=== PATIENT | female | born 1990 | race African-American/Black ===

== ENCOUNTER 2017-02-23 12:08 | Emergency (ER) | payer MEDICAID ==
[2017-02-23] MEDS ORDERED: KETOROLAC 60 MG/2 ML VIAL IVP STA (12:46)
[2017-02-23] MEDS ORDERED: SODIUM CHLORIDE 0.9% 1,000 ML IV ONE (12:46)
[2017-02-23] MEDS ORDERED: METOCLOPRAMIDE 10 MG/2 ML VIAL IVP STA (12:47)
[2017-02-23] MEDS ORDERED: KETOROLAC 30 MG/ML VIAL ONE (12:54)
[2017-02-23] MEDS ORDERED: METOCLOPRAMIDE 10 MG/2 ML VIAL IVP ONE (12:54)
[2017-02-23] MEDS ORDERED: IOPAMIDOL-300 100 ML VIAL IVP ONE (14:19)
== END 2017-02-23 15:15 | disposition home or self-care (01) ==
DX: R51 Headache (principal)
CPT/HCPCS: 36415; 70470; 80053; 81003; 81025; 83690; 85025; 96361; 96374; 96375; 99284; Q9967

== ENCOUNTER 2017-07-12 19:05 | Outpatient (CLI) | payer MEDICAID ==
[2017-07-12 19:25] LABS: HGB - HEMOGLOBIN 12.5 g/dL (12.0-16.0); MEAN CORPUSCULAR HEMOGLOBIN 28.7 pg (27.0-31.0); MEAN PLATELET VOLUME 9.3 fL (7.9-10.8); RED BLOOD COUNT 4.36 10^6/uL (4.20-5.40); RED CELL DISTRIBUTION WIDTH 13.5 % (12.0-15.0); WHITE BLOOD COUNT 9.4 x10^3/uL (4.8-10.8)
[2017-07-12 20:15] LABS: ALBUMIN/GLOBULIN RATIO 1.7 (1.0-2.2); BILIRUBIN,TOTAL 0.3 mg/dL (0.2-1.0); CALCIUM 9.1 mg/dL (8.5-10.3); CREATININE 0.6 mg/dL (0.4-1.0); POTASSIUM 3.3 mmol/L (3.5-5.0); TOTAL PROTEIN 7.2 g/dL (6.7-8.2)
== END 2017-07-12 19:06 | disposition home or self-care (01) ==
LOC: LAB 19:05
PROVIDERS: ATTEND Obstetrics & Gynecology
DX: Z32.01 Encounter for pregnancy test, result positive (principal)
CPT/HCPCS: 36415; 80053; 84702

== ENCOUNTER 2017-08-05 15:08 | Outpatient (CLI) | payer MEDICAID | END 2017-08-05 15:09 | disposition home or self-care (01) | LOC: LAB 15:08 | PROVIDERS: ATTEND Obstetrics & Gynecology | DX: Z33.2 Encounter for elective termination of pregnancy (principal) | CPT/HCPCS: 36415; 84702 ==

== ENCOUNTER 2017-08-10 10:04 | Outpatient (CLI) | payer MEDICAID | END 2017-08-10 10:05 | disposition home or self-care (01) | LOC: LAB 10:04 | PROVIDERS: ATTEND Obstetrics & Gynecology | DX: O02.1 Missed abortion (principal) | CPT/HCPCS: 36415; 84702 ==

== ENCOUNTER 2017-08-13 10:34 | Day surgery (SDC) | payer MEDICAID ==
--- NOTE | 2017-08-13 11:20 | PREOP HISTORY & PHYSICAL ---
DATE OF ADMISSION/SURGERY: 08/13/2017. IDENTIFICATION: A 27-year-old G3, P2-0-0-2 with an 8-week 1-day intrauterine . HISTORY OF PRESENT ILLNESS: This is a patient of [facility] who presented today for followup of her desire for termination of . She received methotrexate 50 mg IM x1 on 017. She had poor followup, but eventually did repeat her quantitative beta hCGs. Her pre-methotrexat e hCG was 1972. Post-methotrexate on 08/05/2017 was 7860. The most recent one on 08/10/2017 was 15,94 6. She states that she has been having some scant vaginal bleeding, in which she would use a panty li ner daily. She denied any cramping. On examination, the patient had a single viable intrauterine measuring 8 weeks 1 day with a crown rump length of 1.71 cm. I could not check heart rate, as the patient was crying so much. There was definitely cardiac activity noted and Doppler flow showed venous and arterial movement. On speculum exam, the cervix was closed, thick and high with a small amount of dark red blood in the po sterior cul-de-sac. There was no tissue protruding from the cervical os. The patient understandably is quite upset and would like further termination of . I discusse d with the patient her options. She may continue with this , but know that given the methotr exate, there may be consequences. Since methotrexate is a folate reductase inhibitor, this could have impact resulting in neural tube defects such as encephalopathy, as well as spina bifida. Further opt ion is to proceed with termination of . Given the resources at [facility] currently, she could either have another round of methotrexate or dilatation and curettage. I discussed with the lisa leblanc the risks, benefits, alternatives, indications and expectations of a suction dilatation and cur ettage. I went over the specifics of dilatation and curettage with the patient. She understands that this will be under general anesthesia. Risks include, but are not limited to inadvertent uterine perf oration, infection and hemorrhage. After all of the patient's questions were answered to her satisfac tion, she verbalized her desire to proceed with surgery. Consent forms have been signed. The patient also states that her life is in chaos. 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 She stat es that she took a lot of time off in order to have her child and has not had a lot PTO build up. The patient is very tearful and is concerned about depression. She has been started on buprop ion, but feels that she is too numb on this medication and feels that this medication has caused her to have no appetite. The patient does admit to smoking a lot of marijuana in order to deal with her a nxiety and depression. The patient is willing to change to a different SSRI at this point in time. He r current pharmacy of choice is [facility] in [place], [place]. PAST MEDICAL HISTORY 1. 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 2. Anxiety, depression. PAST SURGICAL HISTORY: Cardiac surgery x3. ALLERGIES: NO KNOWN DRUG ALLERGIES. MEDICATIONS: Bupropion 150 mg SR 1 tab p.o. daily. SOCIAL HISTORY: She denies any tobacco use, but she does admit to smoking a lot of marijuana. Her mos t recent delivery was vaginal at the [facility] on 01/28/2017. Her son i s named Dennis who weighed 7 pounds 5 ounces. Her first resulted in a vaginal delivery at the [facility] on 08/20/2013 at 40 weeks 6 days. She delivered a female infant named Corbin. PAST GYNECOLOGIC HISTORY: HSV. She denies any abnormal Pap smears. FAMILY HISTORY: Noncontributory. REVIEW OF SYSTEMS: Negative unless otherwise. PAST GYNECOLOGICAL HISTORY: She denies any nausea, vomiting, fevers, chills, diarrhea, or constipatio n. OBJECTIVE VITAL SIGNS: Weight 125 pounds. Height is 62 inches. BMI is 23. Vital signs are stable. She is afebri le. GENERAL: The patient is a well-developed, well-nourished female in no apparent distress. dereck is alert and oriented x3. Though she is very tearful and anxious, she is appropriate. HEENT: Within normal limits. CARDIOVASCULAR: Rate is regular, no murmurs or rubs. PULMONARY: Lungs clear to auscultation bilaterally. ABDOMEN: Soft, nontender. No masses, rebound, rigidity, or guarding. ASSESSMENT 1. A 27-year-old G3, P2-0-0-2 with an 8-week 1-day intrauterine . 2. Failed methotrexate termination. 3. Desired dilatation and curettage. PLAN 1. We will proceed to dilatation and curettage today at noon. 2. Anticipate giving the patient 1 gram of Ancef preoperatively for postoperative endometritis prophy laxis. 3. Ativan in the ambulatory surgery area. 4. Postop medications have been sent for Motrin, acetaminophen, and a handwritten prescription for hy drocodone and APAP. JOB #: [id number] EXT JOB #:[id number]
[2017-08-13] MEDS ORDERED: LACTATED RINGERS 1,000 ML IV ONE ×2 (11:21→12:29)
[2017-08-13] MEDS ORDERED: ceFAZolin 1 GM VIAL ONE (11:34)
[2017-08-13] MEDS ORDERED: MIDAZOLAM 2 MG/2 ML VIAL ONE (11:48)
[2017-08-13] MEDS ORDERED: miSOPROStol 200 MCG TABLET PR ONE (12:20)
[2017-08-13] MEDS ORDERED: OXYTOCIN 10 UNIT/ML VIAL ONE (12:24)
--- NOTE | 2017-08-13 12:39 | OPERATIVE REPORT ---
Operative Report - Other Other Information/Narrative: Date of Operation: 08/13/2017 Surgeon: Emily Mosley DO FACOG Entry Level Account Manager: None Anesthesiologist: Vitaly Donald MD Anesthesia: GET Pre-op Dx: 1. 27 yo with a 8w1d IUP 2. Failed termination of with MTX 3. Desired termination of Post-op Dx: 1. 27 yo with a 8w1d IUP 2. Failed termination of with MTX 3. Desired termination of Procedure: Suction dilation and curettage Findings: Products of conception Specimens: Uterine curettings Drains: None EBL: <30 mL Complications: None OP note dictation: [id number]
[2017-08-13] MEDS ORDERED: LIDOCAINE-MPF 2% 5 ML VIAL IM ONE (12:40)
[2017-08-13] MEDS ORDERED: KETOROLAC 30 MG/ML VIAL IVP ONE (12:40)
[2017-08-13] MEDS ORDERED: METOCLOPRAMIDE 10 MG/2 ML VIAL IVP ONE (12:40)
[2017-08-13] MEDS ORDERED: ONDANSETRON 4 MG/2 ML VIAL IVP ONE (12:40)
[2017-08-13] MEDS ORDERED: PROPOFOL 200 MG/20 ML VIAL IVP ONE (12:40)
[2017-08-13] MEDS ORDERED: DEXAMETHASONE 4 MG/ML VIAL IVP ONE (12:40)
[2017-08-13] MEDS ORDERED: LORazepam 2 MG/ML SYRINGE IVP ONE (12:42)
[2017-08-13 13:45] VITALS: BP 110/66
--- NOTE | 2017-08-14 04:24 | OPERATIVE REPORT ---
DATE OF SURGERY: 08/13/2017 00:00:00 PREOPERATIVE DIAGNOSES: 1. A 27-year-old G3, P2-0-0-2 with an 8-week 1 day intrauterine . 2. Failed termination of with methotrexate. 3. Desired termination of . POSTOPERATIVE DIAGNOSES: 1. A 27-year-old G3, P2-0-0-2 with an 8-week 1 day intrauterine . 2. Failed termination of with methotrexate. 3. Desired termination of . NAME OF PROCEDURE: Suction, dilatation and curettage. SURGEON: Emily Mosley D.O. SALES SUPPORT ASSOCIATE: None. ANESTHESIOLOGIST: Vitaly Donald M.D. ANESTHESIA: General endotracheal tube. FINDINGS: Products of conception. SPECIMENS: Uterine curettings. DRAINS: None. ESTIMATED BLOOD LOSS: Less than 30 mL. COMPLICATIONS: None. BRIEF HISTORY: This is a patient at [facility] who initially saw us on 07/12/2017, w ith desired termination of . After a long discussion with the patient, the risks, benefits, alternatives, indications and expectations of a termination of via methotrexate, she agreed to proceeding with methotrexate. She received 80 mg IM x1 on 07/14/2017. The patient had poor follow up with us and hCGs continued to have an abnormal rise. Today on 08/13/2017, transvaginal ultrasound revealed a single viable intrauterine measuring 8 weeks 1 day. Cardiac activity was seen. I discussed with the patient her options at this point in time. A. We may continue with the , but noting that there may be significant defects if not demise secondary to methotrexate. Her second option would be to proceed to a suction dilatation and curettage, as we do not have mifepristo ne or uterine aspirator available here at [facility]. At this point in time, after d iscussion of the risks, benefits, alternatives, indications and expectations of a suction dilatation and curettage, the patient desired to proceed with suction dilatation and curettage. All consents wer e signed. OPERATION IN DETAIL: The patient was identified, consented, and taken to the operating room where IV access was already in place. She was then given satisfactory general anesthesia by Dr. Vitaly Donald. The patient was then prepped and draped in normal sterile fashion in the lithotomy position using ye llofin stirrups. A timeout was performed, which correctly identified the patient, site of the procedu re, procedure itself. Ancef 2 grams were given to her prior to initiation of surgery. The patient's cervix was serially dilated to 8-Moroccan. A rigid curved 8-Moroccan suction curet was used to curet the endometrium until a satisfactory uterine cry was palpated throughout the endometrium. H emostasis was noted. At this point in time, the procedure had been completed. All instruments were re moved out of the vagina and hemostasis was again reconfirmed. The patient was taken back to recovery room in stable condition. She will be discharged home later to day after postoperative criteria are met. The patient is to see me next week for followup of her surg josé luis as well as for followup of her depression and anxiety. JOB #: [id number] EXT JOB #:[id number]
== END 2017-08-13 10:35 | disposition home or self-care (01) ==
LOC: SDS 10:34
PROVIDERS: ATTEND Obstetrics & Gynecology
PROC: 10A07ZZ Abortion of Products of Conception, Via Natural or Artificial Opening (ICD-10-PCS; principal; 2017-08-13 12:00)
DX: O07.4 Failed attempted termination of pregnancy without complication (principal); Q24.9 Congenital malformation of heart, unspecified
CPT/HCPCS: 59840; A9270; J2060; J7120; 88305

== ENCOUNTER 2017-11-05 10:38 | Outpatient (CLI) | payer MEDICAID | END 2017-11-05 10:39 | disposition home or self-care (01) | LOC: LAB.R 10:38 | PROVIDERS: ATTEND Registered Nurse | DX: Z11.3 Encounter for screening for infections with a predominantly sexual mode of transmission (principal) | CPT/HCPCS: 87491; 87591 ==

== ENCOUNTER 2017-11-13 10:22 | Outpatient (CLI) | payer MEDICAID | END 2017-11-13 10:23 | disposition critical access hospital (66) | LOC: EMS 10:22 | PROVIDERS: ATTEND Surgery | DX: R07.9 Chest pain, unspecified (principal) ==

== ENCOUNTER 2017-11-13 10:44 | Emergency (ER) | payer MEDICAID ==
--- NOTE | 2017-11-13 11:38 | ED Physician Documentation ---
PD HPI CHEST PAIN - Stated complaint Stated Complaint: CP - Chief complaint Chief Complaint: Cardiac - History obtained from History obtained from: Patient - History of Present Illness Timing - onset: Yesterday Timing - onset during: Rest Timing - details: Abrupt onset (she had had an energy drink prior to onset but felt chest pain and dyspnea with fast heart rate come on at same time, with undulating degree of symptoms into today.), Still present, Waxing and waning Quality: Tightness, Sharp, Pain Location: Left chest. No: Epigastric Radiation: Left upper extremity Improved by: Rest Worsened by: Exertion, Inspiration, Position. No: Movement, Palpation Associated symptoms: Shortness of air, Feeling faint / dizzy, Palpitations ( feeling heart rate was going fast). No: Nausea Similar symptoms before: Has not had sx before Review of Systems Constitutional: denies: Fever, Chills Nose: denies: Rhinorrhea / runny nose, Congestion Throat: denies: Sore throat Cardiac: reports: Chest pain / pressure, Palpitations. denies: Pedal edema, Calf pain Respiratory: reports: Dyspnea (feeling of chest heaviness and hard to take deep breath.), Cough (minimal). denies: Hemoptysis, Wheezing GI: denies: Abdominal Pain, Nausea, Vomiting, Diarrhea : denies: Dysuria, Frequency Skin: denies: Rash, Lesions Musculoskeletal: denies: Neck pain, Back pain, Extremity swelling Neurologic: reports: Generalized weakness. denies: Focal weakness, Numbness Endocrine: reports: Weight loss (some mild weight loss as she is about 3 months post-). denies: Easy bruising / bleeding Immunocompromised: denies: Immunocompromised PD PAST MEDICAL HISTORY - Past Medical History Cardiovascular: Murmur, Valve disorder Respiratory: None Endocrine/Autoimmune: None GI: None : None HEENT: None Psych: Depression Musculoskeletal: None Derm: None - Past Surgical History Past Surgical History: Yes Cardiovascular: Other (valvuloplasty when she was 4 years old.) - Present Medications Home Medications: Ambulatory Orders Medication Instructions Recorded Confirmed Albuterol Sulf [Ventolin Hfa 1 - 2 puffs INH Q4HR PRN #1 inhaler 11/13/17 Inhaler] Naproxen 375 mg PO BID #20 tablet 11/13/17 - Allergies Allergies/Adverse Reactions: Allergies Allergy/AdvReac Type Severity Reaction Status Date / Time azithromycin AdvReac Cramps Verified 09/02/17 11:51 - Social History Does the pt smoke?: No Smoking Status: Never smoker Does the pt drink ETOH?: No Does the pt have substance abuse?: No - Family History Family history: denies: Venous thromboembolism, Aortic aneursym, Aortic dissection - Immunizations Immunizations are current?: Yes PD ED PE NORMAL - Vitals Vital signs reviewed: Yes (tachycardic at 100; sats 98% RA) - General General: Alert and oriented X 3, No acute distress, Well developed/nourished - HEENT HEENT: Ears normal, Pharynx benign - Neck Neck: Supple, no meningeal sign, No adenopathy, No JVD, No bruit - Cardiac Cardiac: RRR, Other (1/6 murmur left chest and prior sternotomy scar noted. ) - Respiratory Respiratory: No respiratory distress, Clear bilaterally, Other (no chestwall tenderness) - Abdomen Abdomen: Soft, Non tender - Back Back: No CVA TTP - Derm Derm: Normal color, Warm and dry - Extremities Extremities: No deformity, No tenderness to palpate, No edema, No calf tenderness / cord - Neuro Neuro: Alert and oriented X 3, No motor deficit, Normal speech Results - Vitals Vitals: Vital Signs - 24 hr 11/13/17 11/13/17 11/13/17 10:52 11:08 12:11 Temperature 36.6 C Heart Rate 100 91 Respiratory 12 18 Rate Blood Pressure 135/85 H 121/75 Blood Pressure 135/85 H [Left] Blood Pressure 129/78 [Right] O2 Saturation 98 99 11/13/17 11/13/17 12:49 14:50 Temperature Heart Rate 88 74 Respiratory 21 16 Rate Blood Pressure 124/75 112/68 Blood Pressure [Left] Blood Pressure [Right] O2 Saturation 99 98 Oxygen O2 Source Room air - EKG (time done) 10:52 Rate: Rate (enter#) (94) Rhythm: NSR Gaines: Normal Intervals: Normal WA, Prolonged QT QRS: Normal Ischemia: T wave inversion (anterior leads). No: ST elevation c/w ischemia, ST depression Compare to prior EKG: Old EKG unavailable - Labs Labs: Laboratory Tests 11/13/17 11/13/17 11/13/17 13:04 13:04 13:04 WBC 8.0 RBC 4.07 L Hgb 12.0 Hct 35.4 L MCV 87.0 MCH 29.5 MCHC 33.9 RDW 13.1 Plt Count 145 MPV 9.5 Neut # 6.8 H Lymph # 0.8 L Swift # 0.3 Eos # 0.0 Baso # 0.0 Absolute Nucleated RBC 0.00 Nucleated RBC % 0.0 Sodium 139 Potassium 3.5 Chloride 109 Carbon Dioxide 17 L Anion Gap 13.0 BUN 12 Creatinine 0.7 Estimated GFR (MDRD) 124 Glucose 88 Calcium 8.1 L Total Bilirubin 0.9 AST 14 ALT 12 Alkaline Phosphatase 48 Troponin I < 0.04 B-Natriuretic Peptide Total Protein 6.6 L Albumin 3.8 Globulin 2.8 Albumin/Globulin Ratio 1.4 Lipase 15 L 11/13/17 13:04 WBC RBC Hgb Hct MCV MCH MCHC RDW Plt Count MPV Neut # Lymph # Swift # Eos # Baso # Absolute Nucleated RBC Nucleated RBC % Sodium Potassium Chloride Carbon Dioxide Anion Gap BUN Creatinine Estimated GFR (MDRD) Glucose Calcium Total Bilirubin AST ALT Alkaline Phosphatase Troponin I B-Natriuretic Peptide 24 Total Protein Albumin Globulin Albumin/Globulin Ratio Lipase - Rads (name of study) chest CT angio Radiology: Prelim report reviewed (no acute findings) PD MEDICAL DECISION MAKING - ED course Complexity details: reviewed results, considered differential (given her chest pain, pleuritic, and feeling of dyspnea I was concerned for early pneumonia, PE , PTX, effusion, NM. Had moderate concern so went to CT chest rather than CXR/ Ddimer as I felt it would be most conclusive. ), d/w patient Departure - Departure Disposition: 01 Home, Self Care Clinical Impression: Chest pain Qualifiers: Chest pain type: pleurodynia Qualified Code(s): R07.81 - Pleurodynia Dyspnea Qualifiers: Dyspnea type: shortness of breath Qualified Code(s): R06.02 - Shortness of breath Condition: Stable Record reviewed to determine appropriate education?: Yes Instructions: ED Chest Pain Atypical Unkn Cause, ED Dyspnea Shortness of Breath Prescriptions: Albuterol Sulf [Ventolin Hfa Inhaler] 1 - 2 puffs INH Q4HR PRN #1 inhaler PRN Reason: Shortness Of Air/Wheezing Naproxen 375 mg PO BID #20 tablet Comments: Your tests are normal which exclude more serious causes for the chest pain and shortness of breath. I would consider the idea of an early viral illness given your chills and feeling of tightness in the chest. I would see how your symptoms evolve over the next few days or if they just go away. Use the albuterol inhaler 2 puffs 4 times a day for the next week and added times if needed for chest tightness. Use naproxen twice daily for the next week for inflammation and to help with the chest pain. Add Tylenol if needed for pain. Drink lots of fluids. Recheck if not improved well over the next several days. Discharge Date/Time: 11/13/17 14:50
[2017-11-13] MEDS ORDERED: KETOROLAC 60 MG/2 ML VIAL IVP STA (12:00)
[2017-11-13] MEDS ORDERED: SODIUM CHLORIDE 0.9% 1,000 ML IV ONE (12:00)
[2017-11-13] MEDS ORDERED: IOPAMIDOL-300 100 ML VIAL ONE (12:09)
[2017-11-13] MEDS ORDERED: IOPAMIDOL-300 100 ML VIAL IVP ONE ×2 (12:50→14:24)
--- NOTE | 2017-11-13 13:06 | CT Report ---
EXAM: CT ANGIOGRAM CHEST EXAM DATE: 11/13/2017 12:51 PM. CLINICAL HISTORY: Sharp chest pain and dyspnea today. COMPARISON: None. TECHNIQUE: Routine helical imaging was performed through the chest in the pulmonary arterial phase. I V Contrast: 80 cc Isovue 300. Reconstructions: Coronal 3-D MIP reconstructions.Sagittal and coronal. In accordance with CT protocol optimization, one or more of the following dose reduction techniques w ere utilized for this exam: automated exposure control, adjustment of mA and/or KV based on patient s ize, or use of iterative reconstructive technique. FINDINGS: Pulmonary Arteries: Diagnostic quality: Adequate through the segmental arteries. No evidence for acute or chronic pulmona ry emboli although mild left sided respiratory motion artifact decreases sensitivity for detection of small and peripheral emboli. RV/LV is within normal limits. There is no interventricular septal bowing. There is no reflux of cont rast material in the IVC. Lungs/Pleura: No consolidation, nodules, or edema. No effusions or pneumothorax. Mediastinum: Normal. No cardiac enlargement or adenopathy. Thoracic Aorta: No aneurysm or gera dissection. Upper Abdomen: Unremarkable. Other: None. IMPRESSION: Normal pulmonary CT angiogram. No pulmonary emboli. [facility] Referring Provider Line: [phone] SITE ID: [id number]
--- NOTE | 2017-11-13 13:06 | CT Preliminary Report ---
Exam: CT CHEST ANGIO (PE) IMPRESSION: Normal pulmonary CT angiogram. No pulmonary emboli. [facility] SITE ID: [id number]
[2017-11-13 13:12] LABS: BASOPHILS % (AUTO) 0.1 %; LYMPHOCYTES # (AUTO) 0.8 10^3/uL (1.5-3.5); LYMPHOCYTES % (AUTO) 10.2 %; MEAN CORPUSCULAR HEMOGLOBIN 29.5 pg (27.0-31.0); MEAN CORPUSCULAR HGB CONC 33.9 g/dL (32.0-36.0); MEAN PLATELET VOLUME 9.5 fL (7.9-10.8); MONOCYTES # (AUTO) 0.3 10^3/uL (0.0-1.0); MONOCYTES % (AUTO) 4.4 %; NEUTROPHILS # (AUTO) 6.8 10^3/uL (1.5-6.6); NEUTROPHILS % (AUTO) 85.3 %; PLT - PLATELET COUNT 145 10^3/uL (130-450); RED BLOOD COUNT 4.07 10^6/uL (4.20-5.40); RED CELL DISTRIBUTION WIDTH 13.1 % (12.0-15.0)
[2017-11-13 13:26] LABS: ALBUMIN 3.8 g/dL (3.2-5.5); ALBUMIN/GLOBULIN RATIO 1.4 (1.0-2.2); BILIRUBIN,TOTAL 0.9 mg/dL (0.2-1.0); CALCIUM 8.1 mg/dL (8.5-10.3); CREATININE 0.7 mg/dL (0.4-1.0); TOTAL PROTEIN 6.6 g/dL (6.7-8.2)
[2017-11-13] MEDS ORDERED: DEXAMETHASONE 10 MG/ML VIAL IVP STA (13:55)
[2017-11-13 14:53] VITALS: BP 112/68
== END 2017-11-13 14:50 | disposition home or self-care (01) ==
LOC: EDBD → EDUNIT# → ED 10:44
DX: R07.81 Pleurodynia (principal); R06.02 Shortness of breath; I51.9 Heart disease, unspecified
CPT/HCPCS: 36415; 71275; 80053; 83690; 83880; 84484; 85025; 93005; 96361; 96374; 96375; 99283; 99284; A0425; A0427; Q9967

== ENCOUNTER 2018-07-22 17:29 | Emergency (ER) | payer MEDICAID ==
[2018-07-22 17:44] VITALS: BP 114/77
--- NOTE | 2018-07-22 17:44 | ED Physician Documentation ---
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 A friend advised her to come to the emergency department. She has a chronic cough but relates that to marijuana use. She denies hemoptysis. She has no significant foreign travel, has not spent time in long term. Has never been exposed to TB.) Review of Systems Constitutional: denies: Chills, Fatigue, Sweats Respiratory: denies: Dyspnea : denies: Now EGA PD PAST MEDICAL HISTORY - Past Medical History Cardiovascular: Murmur, Valve disorder Respiratory: None Endocrine/Autoimmune: None GI: None : None HEENT: None Psych: Depression Musculoskeletal: None Derm: None - Past Surgical History Past Surgical History: Yes Cardiovascular: Other (valvuloplasty when she was 4 years old.) - Present Medications Home Medications: Ambulatory Orders Medication Instructions Recorded Confirmed RX: Albuterol Sulf [Ventolin Hfa 1 - 2 puffs INH Q4HR PRN #1 inhaler 11/13/17 Inhaler] RX: Naproxen 375 mg PO BID #20 tablet 11/13/17 - Allergies Allergies/Adverse Reactions: Allergies Allergy/AdvReac Type Severity Reaction Status Date / Time azithromycin AdvReac Cramps Verified 09/02/17 11:51 - Social History Does the pt smoke?: No Smoking Status: Never smoker Does the pt drink ETOH?: No Does the pt have substance abuse?: No - Immunizations Immunizations are current?: Yes PD ED PE NORMAL - Vitals Vital signs reviewed: Yes - General General: Alert and oriented X 3, No acute distress - HEENT HEENT: Ears normal - Neck Neck: Supple, no meningeal sign, No bony TTP - Respiratory Respiratory: No respiratory distress, Clear bilaterally - Abdomen Abdomen: Non tender - Neuro Neuro: Alert and oriented X 3, Normal speech Results - Vitals Vitals: Vital Signs - 24 hr 07/22/18 17:41 Temperature 36.7 C Heart Rate 72 Respiratory 16 Rate Blood Pressure 114/77 O2 Saturation 100 Oxygen O2 Source Room air - Rads (name of study) 2v chest Radiology: EMP read contemporaneously (normal) PD MEDICAL DECISION MAKING - Sepsis Event Vital Signs: Vital Signs - 24 hr 07/22/18 17:41 Temperature 36.7 C Heart Rate 72 Respiratory 16 Rate Blood Pressure 114/77 O2 Saturation 100 Oxygen O2 Source Room air Departure - Departure Disposition: 01 Home, Self Care Clinical Impression: Positive PPD Condition: Good Record reviewed to determine appropriate education?: Yes Instructions: TB Screening Skin Follow-Up: [facility] [Provider Group] Comments: Your chest x-ray is normal, so there is no reason you cannot work. You should have a follow-up QuantiFERON gold test from a primary care physician, numbers are included. Discharge Date/Time: 07/22/18 18:51
--- NOTE | 2018-07-22 18:42 | XRAY Report ---
Reason: pos PPD, cough Procedure Date: 07/22/2018 Accession Number: [id number] / [id number] Procedure: XR - Chest 2 View X-Ray CPT Code: 18190 FULL RESULT: EXAM: CHEST RADIOGRAPHY EXAM DATE: 07/22/2018 06:25 PM. CLINICAL HISTORY: Pos PPD, cough. COMPARISON: 11/13/2017. TECHNIQUE: 2 views. FINDINGS: Lungs/Pleura: No focal consolidation. No pleural effusion. No pneumothorax. Normal volumes. Mediastinum: Heart and mediastinal contours are normal. Other: Median sternotomy. There may be a bone island in the right proximal humerus. IMPRESSION: No acute cardiopulmonary abnormality. [facility]
== END 2018-07-22 18:51 | disposition home or self-care (01) ==
LOC: ED 17:29
DX: R76.11 Nonspecific reaction to tuberculin skin test without active tuberculosis (principal)
CPT/HCPCS: 71046; 99282; 99283

== ENCOUNTER 2018-12-09 12:44 | Outpatient (CLI) | payer MEDICAID | END 2018-12-09 12:45 | disposition critical access hospital (66) | LOC: EMS 12:44 | PROVIDERS: ATTEND Surgery | DX: R07.9 Chest pain, unspecified (principal) | CPT/HCPCS: A0425; A0427; A0999 ==

== ENCOUNTER 2019-02-16 22:55 | Outpatient (CLI) | payer MEDICAID | END 2019-02-16 22:56 | disposition EMS.NT | LOC: EMS 22:55 | PROVIDERS: ATTEND Surgery | DX: R55 Syncope and collapse (principal); R10.33 Periumbilical pain ==

== ENCOUNTER 2019-08-11 08:00 | Outpatient (CLI) | payer MEDICAID ==
[2019-08-11 21:17] LABS: CANDIDA GROUP DNA NEGATIVE (NEGATIVE); CANDIDA KRUSEI DNA NEGATIVE (NEGATIVE); TRICHOMONAS VAGINALIS DNA NEGATIVE (NEGATIVE)
[2019-08-11 22:02] LABS: TRICHOMONAS VAGINALIS DNA NEGATIVE (NEGATIVE)
== END 2019-08-11 08:01 | disposition home or self-care (01) ==
LOC: LAB.R 08:00
PROVIDERS: ATTEND Nurse Practitioner Obstetrics & Gynecology
DX: N89.8 Other specified noninflammatory disorders of vagina (principal); Z11.3 Encounter for screening for infections with a predominantly sexual mode of transmission
CPT/HCPCS: 87491; 87591; 87661; 87801

== ENCOUNTER 2019-10-05 20:17 | Outpatient (CLI) | payer MEDICAID ==
--- NOTE | 2019-10-07 11:00 | Ultrasound Report ---
Reason: POSITIVE TEST Procedure Date: 10/05/2019 Accession Number: [id number] / [id number] Procedure: US - OB First Trimester CPT Code: Final Report FULL RESULT: EXAM: FIRST TRIMESTER OBSTETRIC ULTRASOUND (Less than 11 weeks) EXAM DATE: 10/05/2019 09:25 PM. CLINICAL HISTORY: Positive test. LMP: Uncertain although possibly 07/16/2019. COMPARISONS: None. TECHNIQUE: Transabdominal and transvaginal ultrasound examination with static image documentation. CLINICAL DATES: EGA 11 weeks, 4 days with ERNST 04/21/2020 based on LMP. ASSESSMENT: Gestational Sac: Single intrauterine. Mean gestational sac diameter: 7 mm = 5 weeks, 3 days. Embryo: CRL (crown-rump length) not visualized. Cardiac activity: Not present. Yolk sac: 3 mm. Amniotic fluid: Not accurately assessed at this gestational age. Early placenta: Not visible at this gestational age. Other: No perigestational fluid collection demonstrated. MATERNAL STRUCTURES: Uterus: Anteverted. Unremarkable. Cervix: Closed. Right Ovary/Adnexa: The ovary measures 3.5 x 2.1 x 2.0 cm, volume 7.6 cc. Normal blood flow. Within the right ovary is a complex 1.9 x 1.9 x 2 cm lesion with peripheral vascularity typically seen with a corpus luteal cyst. Left Ovary/Adnexa: The ovary measures 2.6 x 1.3 x 0.8 cm, volume 1.4 cc. Unremarkable. Free Fluid: None. Other: None. IMPRESSION: 1. Intrauterine at EGA 5 weeks, 3 days based on mean sac diameter. Yolk sac is present. Embryo is not identified although may not be identified at this gestational sac size. Clinical dates based on uncertain LMP is 11 weeks, 4 days. 2. Follow-up ultrasound is recommended in 10-14 days for reassessment and to assess for progression. [facility]
== END 2019-10-05 20:18 | disposition home or self-care (01) ==
LOC: DI 20:17
PROVIDERS: ATTEND Obstetrics & Gynecology
DX: Z32.01 Encounter for pregnancy test, result positive (principal)
CPT/HCPCS: 76801; 76817

== ENCOUNTER 2020-06-05 15:14 | Outpatient (CLI) | payer MEDICAID ==
--- NOTE | 2020-06-05 17:15 | Ultrasound Report ---
PROCEDURE: OB First Trimester INDICATIONS: + PREG TEST, VAGINAL BLEEDING OUTSIDE/PRIOR DATING DATA: Last menstrual period (LMP): 04/25/2020. LMP-based estimated date of delivery (ERNST): 11/01/2020. First dating scan (date and location): 06/05/2020, current study. Estimated date of delivery (ERNST) from first dating scan: Not applicable. TECHNIQUE: Real-time scanning was performed of the fetus and maternal pelvic organs, with image documentation. Transvaginal scanning was performed. COMPARISON: None FINDINGS: Embryo: No intrauterine gestational sac or pole was identified. Uterus: There is an arcuate uterine morphology. Centrally in the anterior fundal endometrium, there i s a multicystic, hypoechoic area measuring roughly 2.7 x 2.2 cm and 0.8 cm in thickness. The cervix i s closed. Myometrium is mildly heterogeneous. Ovaries the right ovary contains a 1.9 x 1.4 x 1.4 cm, potentially involuting corpus luteum. The left ovary has a normal follicular echotexture and is normal size.. Limited images through the kidneys demonstrate no hydronephrosis. IMPRESSION: 1. No evidence of viable intrauterine . Correlation with serial beta hCG levels is recommend ed. This may be retained products of conception or early gestational trophoblastic disease. Vasculari ty of the finding was not documented on the given images. 2. If beta hCG levels continue to rise, follow-up sonographic imaging is recommended. Reviewed by: Nataliya Flower MD on 06/05/2020 4:14 PM SMITHA Approved by: Nataliya Flower MD on 06/05/2020 4:14 PM [place]MAG[place]IE Station ID: [id number]
--- NOTE | 2020-06-05 17:17 | Ultrasound Report ---
PROCEDURE: OB First Trimester INDICATIONS: + PREG TEST, VAGINAL BLEEDING OUTSIDE/PRIOR DATING DATA: Last menstrual period (LMP): 04/25/2020. LMP-based estimated date of delivery (ERNST): 11/01/2020. First dating scan (date and location): 06/05/2020, current study. Estimated date of delivery (ERNST) from first dating scan: Not applicable. TECHNIQUE: Real-time scanning was performed of the fetus and maternal pelvic organs, with image documentation. Transvaginal scanning was performed. COMPARISON: None FINDINGS: Embryo: No intrauterine gestational sac or pole was identified. Uterus: There is an arcuate uterine morphology. Centrally in the anterior fundal endometrium, there i s a multicystic, hypoechoic area measuring roughly 2.7 x 2.2 cm and 0.8 cm in thickness. The cervix i s closed. Myometrium is mildly heterogeneous. Ovaries the right ovary contains a 1.9 x 1.4 x 1.4 cm, potentially involuting corpus luteum. The left ovary has a normal follicular echotexture and is normal size.. Limited images through the kidneys demonstrate no hydronephrosis. IMPRESSION: 1. No evidence of viable intrauterine . Correlation with serial beta hCG levels is recommend ed. This may be retained products of conception or early gestational trophoblastic disease. Vasculari ty of the finding was not documented on the given images. 2. If beta hCG levels continue to rise, follow-up sonographic imaging is recommended. Reviewed by: Nataliya Flower MD on 06/05/2020 4:16 PM SMITHA Approved by: Nataliya Flower MD on 06/05/2020 4:16 PM AKMAG[place]IE Station ID: [id number]
== END 2020-06-05 15:15 | disposition home or self-care (01) ==
LOC: DI 15:14
PROVIDERS: ATTEND Advanced Practice Midwife
DX: Z32.01 Encounter for pregnancy test, result positive (principal); O46.91 Antepartum hemorrhage, unspecified, first trimester
CPT/HCPCS: 76801; 76817

== ENCOUNTER 2020-06-11 15:39 | Outpatient (CLI) | payer MEDICAID | END 2020-06-11 15:40 | disposition home or self-care (01) | LOC: LAB 15:39 | PROVIDERS: ATTEND Advanced Practice Midwife | DX: O20.9 Hemorrhage in early pregnancy, unspecified (principal); Z3A.00 Weeks of gestation of pregnancy not specified | CPT/HCPCS: 36415; 82105; 84702 ==

== ENCOUNTER 2020-06-16 16:10 | Emergency (ER) | payer MEDICAID ==
[2020-06-16] MEDS ORDERED: SODIUM CHLORIDE 0.9% 1,000 ML IV STA ×2 (16:31)
[2020-06-16] MEDS ORDERED: METOCLOPRAMIDE 10 MG/2 ML VIAL IVP STA (16:32)
--- NOTE | 2020-06-16 16:38 | ED Physician Documentation ---
History of Present Illness - Stated complaint Stated Complaint: FEMALE - Chief complaint Chief Complaint: Abd Pain - History obtained from History obtained from: Patient - History of Present Illness Timing: How many days ago (3-4) Pain level max: 6 Pain level now: 5 - Additonal information Additional information: 30-year-old female presents to the emergency department stating that she is currently having a miscarriage. She states she has approximately 5 weeks when she had the miscarriage. Has not had any vaginal bleeding. Did have vaginal bleeding a week or 2 ago. Is having pelvic pain as well as nausea, vomiting, diarrhea. No fevers. No chills. She states that she received a phone call from the OB clinic 2 days ago stating she was having a miscarriage. Review of Systems Ten Systems: 10 systems reviewed and negative Constitutional: denies: Fever, Chills Throat: denies: Sore throat Cardiac: denies: Chest pain / pressure, Palpitations Respiratory: denies: Cough GI: reports: Nausea, Vomiting, Diarrhea Skin: denies: Rash Musculoskeletal: denies: Neck pain, Back pain Neurologic: denies: Headache PD PAST MEDICAL HISTORY - Past Medical History Cardiovascular: Murmur, Valve disorder Respiratory: None Endocrine/Autoimmune: None GI: None : None HEENT: None Psych: Depression Musculoskeletal: None Derm: None - Past Surgical History Past Surgical History: Yes Cardiovascular: Other - Present Medications Home Medications: Ambulatory Orders Medication Instructions Recorded Confirmed raNITIdine HCL [Ranitidine HCl] 150 mg PO BID #28 capsule 12/09/18 Ondansetron Odt [Zofran] 4 mg TL Q6H PRN #10 tablet 06/16/20 - Allergies Allergies/Adverse Reactions: Allergies Allergy/AdvReac Type Severity Reaction Status Date / Time azithromycin AdvReac Cramps Verified 12/09/18 13:16 - Social History Does the pt smoke?: No Smoking Status: Never smoker Does the pt drink ETOH?: No Does the pt have substance abuse?: No - Immunizations Immunizations are current?: Yes PD ED PE NORMAL - Vitals Vital signs reviewed: Yes - General General: Alert and oriented X 3, No acute distress - HEENT HEENT: Moist mucous membranes - Neck Neck: Supple, no meningeal sign - Cardiac Cardiac: RRR - Respiratory Respiratory: No respiratory distress, Clear bilaterally - Abdomen Abdomen: Normal bowel sounds, Non distended, Other (Tender to palpation right lower quadrant. No peritoneal signs.) - Derm Derm: Warm and dry - Extremities Extremities: No edema - Neuro Neuro: Alert and oriented X 3 - Psych Psych: Normal mood, Normal affect Results - Vitals Vitals: Vital Signs - 24 hr 06/16/20 06/16/20 06/16/20 16:24 17:11 18:56 Temperature 36.2 C L 36.2 C L 36.8 C Heart Rate 69 69 72 Respiratory 18 18 Rate Blood Pressure 140/90 H 140/90 H 140/82 H O2 Saturation 95 95 100 Oxygen O2 Source Room air - Labs Labs: Laboratory Tests 06/16/20 06/16/20 06/16/20 16:50 16:50 16:50 WBC 13.6 H RBC 4.40 Hgb 13.5 Hct 39.9 MCV 90.7 MCH 30.7 MCHC 33.8 RDW 12.0 Plt Count 215 MPV 11.0 H Neut # (Auto) 9.9 H Lymph # (Auto) 2.7 [place] # (Auto) 0.8 Eos # (Auto) 0.1 Baso # (Auto) 0.1 Absolute Nucleated RBC 0.00 Nucleated RBC % 0.0 Sodium 135 Potassium 3.6 Chloride 104 Carbon Dioxide 22 Anion Gap 9.0 BUN 10 Creatinine 0.6 Estimated GFR (MDRD) 144 Glucose 116 H Calcium 9.3 Total Bilirubin 0.6 AST 17 ALT 20 Alkaline Phosphatase 54 Total Protein 7.7 Albumin 4.7 Globulin 3.0 Albumin/Globulin Ratio 1.6 Lipase 24 HCG, Quant 07242.00 Urine Color Urine Clarity Urine pH Ur Specific [place] Urine Protein Urine Glucose (UA) Urine Ketones Urine Occult Blood Urine Nitrite Urine Bilirubin Urine Urobilinogen Ur Leukocyte Esterase Ur Microscopic Review Urine Culture Comments 06/16/20 16:50 WBC RBC Hgb Hct MCV MCH MCHC RDW Plt Count MPV Neut # (Auto) Lymph # (Auto) [place] # (Auto) Eos # (Auto) Baso # (Auto) Absolute Nucleated RBC Nucleated RBC % Sodium Potassium Chloride Carbon Dioxide Anion Gap BUN Creatinine Estimated GFR (MDRD) Glucose Calcium Total Bilirubin AST ALT Alkaline Phosphatase Total Protein Albumin Globulin Albumin/Globulin Ratio Lipase HCG, Quant Urine Color YELLOW Urine Clarity CLEAR Urine pH 5.0 Ur Specific [place] >=1.030 H Urine Protein NEGATIVE Urine Glucose (UA) NEGATIVE Urine Ketones NEGATIVE Urine Occult Blood NEGATIVE Urine Nitrite NEGATIVE Urine Bilirubin NEGATIVE Urine Urobilinogen 0.2 (NORMAL) Ur Leukocyte Esterase NEGATIVE Ur Microscopic Review NOT INDICATED Urine Culture Comments NOT INDICATED - Rads (name of study) OB US Radiology: Prelim report reviewed, EMP read contemporaneously, See rad report PD MEDICAL DECISION MAKING - ED course Complexity details: reviewed results, re-evaluated patient, considered differential, d/w patient, d/w family, d/w network relations consultant ED course: Patient is a 30-year-old female who presents to the emergency department with concerns regarding a miscarriage, increasing nausea and vomiting. She was given IV fluids, Reglan and Zofran. Feels much better. Ultrasound reveals an intrauterine with a heart rate of approximately 135 bpm, she is approximately 6 weeks . Patient would like to discuss with OB aborting the , I spoke with Dr. Tinoco, OB on-call who recommends contacting the clinic in the morning. Patient is comfortable with this plan. No evidence of ectopic . Patient counseled regarding signs and symptoms for which I believe and urgent re-evaluation would be necessary. Patient with good understanding of and agreement to plan and is comfortable going home at this time This document was made in part using voice recognition software. While efforts are made to proofread this document, sound alike and grammatical errors may occur. Single live intrauterine . Mild subchorionic hemorrhage is seen. Close clinical follow-up with serial beta hCG measurements are recommended, as clinically appropriate. There is a 9 day discrepancy between the estimated gestational age based upon these images and the estimated gestational age based upon the given date of the last menstrual p eriod. Please correlate with precise clinical dating. Note: Concordant preliminary findings given by the stock saw operator upon the completion of the examination to Dr. Barrios at 5:40 PM on 06/16/2020. Departure - Departure Disposition: 01 Home, Self Care Clinical Impression: Intrauterine Condition: Good Instructions: ED Preg Established Normal Sxs Follow-Up: Adalgisa Simeon ARNP [Primary Care Provider] - Tomorrow Prescriptions: Ondansetron Odt [Zofran] 4 mg TL Q6H PRN #10 tablet PRN Reason: Nausea / Vomiting Comments: Follow-up with the OB clinic tomorrow for further care. Return if you worsen. I spoke with Dr. Earnest dominguez. Discharge Date/Time: 06/16/20 18:56
[2020-06-16 17:01] LABS: BASOPHILS # (AUTO) 0.1 10^3/uL (0.0-0.1); BASOPHILS % (AUTO) 0.4 %; EOSINOPHILS # (AUTO) 0.1 10^3/uL (0.0-0.7); EOSINOPHILS % (AUTO) 0.8 %; HGB - HEMOGLOBIN 13.5 g/dL (12.0-16.0); LYMPHOCYTES # (AUTO) 2.7 10^3/uL (1.5-3.5); LYMPHOCYTES % (AUTO) 19.8 %; MEAN CORPUSCULAR HEMOGLOBIN 30.7 pg (27.0-31.0); MEAN CORPUSCULAR HGB CONC 33.8 g/dL (32.0-36.0); MEAN CORPUSCULAR VOLUME 90.7 fL (81.0-99.0); MONOCYTES # (AUTO) 0.8 10^3/uL (0.0-1.0); MONOCYTES % (AUTO) 5.7 %; NEUTROPHILS # (AUTO) 9.9 10^3/uL (1.5-6.6); NEUTROPHILS % (AUTO) 72.9 %; PLT - PLATELET COUNT 215 10^3/uL (130-450); WHITE BLOOD COUNT 13.6 x10^3/uL (4.8-10.8)
[2020-06-16 17:05] LABS: BILIRUBIN,URINE NEGATIVE (NEGATIVE); GLUCOSE, URINE (UA) NEGATIVE (NEGATIVE); KETONES,URINE (UA) NEGATIVE (NEGATIVE); LEUKOCYTE ESTERASE, URINE NEGATIVE (NEGATIVE); NITRITE,URINE NEGATIVE (NEGATIVE); OCCULT BLOOD,URINE NEGATIVE (NEGATIVE); PROTEIN,URINE NEGATIVE (NEGATIVE); UROBILINOGEN,URINE 0.2 (NORMAL) E.U./dL (NORMAL)
[2020-06-16 17:08] LABS: CLARITY,URINE CLEAR (CLEAR)
[2020-06-16 17:16] LABS: ALBUMIN 4.7 g/dL (3.2-5.5); ALBUMIN/GLOBULIN RATIO 1.6 (1.0-2.2); BILIRUBIN,TOTAL 0.6 mg/dL (0.2-1.0); CALCIUM 9.3 mg/dL (8.5-10.3); CREATININE 0.6 mg/dL (0.4-1.0); TOTAL PROTEIN 7.7 g/dL (6.7-8.2)
--- NOTE | 2020-06-16 18:06 | Ultrasound Report ---
PROCEDURE: OB First Trimester INDICATIONS: , pelvic pain OUTSIDE/PRIOR DATING DATA: Last menstrual period (LMP): 04/25/2020. LMP-based estimated date of delivery (ERNST): 01/30/2021. First dating scan (date and location): 06/16/2020. Estimated date of delivery (ERNST) from first dating scan: 02/08/2021. TECHNIQUE: Real-time scanning was performed of the fetus and maternal pelvic organs, with image documentation. COMPARISON: 06/05/2020 FINDINGS: Embryo: There is an intrauterine gestational sac seen, with a pole present, which measures 0.4 cm, which corresponds to an estimated gestational age of 6 weeks 1 day. cardiac activity is se en, with a measured heart rate of 132 bpm. Mild perigestational/subchorionic hemorrhage can be seen , which measures 1.5 x 0.8 x 2.1 cm. A yolk sac is seen. Measurement variability in dating: +/- 4 weeks by LMP, +/- 7 days by mean sac diameter (use before 6 weeks gestation if crown-rump length not able to be measured), +/- 5 days by crown-rump length (6-12 weeks gestation). Maternal organs: Ovaries are unremarkable, with note made of a right ovarian corpus luteum cyst. Li mited images through the kidneys demonstrate no hydronephrosis. IMPRESSION: Single live intrauterine . Mild subchorionic hemorrhage is seen. Close clinical follow-up with serial beta hCG measurements are recommended, as clinically appropriate . There is a 9 day discrepancy between the estimated gestational age based upon these images and the es timated gestational age based upon the given date of the last menstrual period. Please correlate with precise clinical dating. Note: Concordant preliminary findings given by the chisel trimmer upon the completion of the examination to Dr. Barrios at 5:40 PM on 06/16/2020. Reviewed by: Tony Bentley MD on 06/16/2020 5:04 PM MSITHA Approved by: Tony Bentley MD on 06/16/2020 5:04 PM SMITHA Station ID: [id number]
[2020-06-16] MEDS ORDERED: ONDANSETRON 4 MG/2 ML VIAL IVP STA (18:08)
--- NOTE | 2020-06-16 18:08 | Ultrasound Report ---
PROCEDURE: OB Transvaginal INDICATIONS: , pelvic pain OUTSIDE/PRIOR DATING DATA: Last menstrual period (LMP): 04/25/2020 . LMP-based estimated date of delivery (ERNST): 01/30/2021. First dating scan (date and location): 06/16. Estimated date of delivery (ERNST) from first dating scan: 02/08/2021. TECHNIQUE: Real-time scan charli was performed of the fetus and maternal pelvic organs, with image documentation. COMPARISON: FINDINGS: Embryo: There is an intrauterine gestational sac seen, with a pole present , which measures 0.4 cm, which corresponds to an estimated gestational age of 6 weeks 1 day. ca rdiac activity is seen, with a measured heart rate of 132 bpm. Mild perigestational/subchorionic hemo rrhage can be seen, which measures 1.5 x 0.8 x 2.1 cm. A yolk sac is seen. Measurement variability i n dating: +/- 4 weeks by LMP, +/- 7 days by mean sac diameter (use before 6 weeks gestation if crown- rump length not able to be measured), +/- 5 days by crown-rump length (6-12 weeks gestation). Matern al organs: Ovaries are unremarkable, with note made of a right ovarian corpus luteum cyst. Limited im ages through the kidneys demonstrate no hydronephrosis. IMPRESSION: Single live intrauterine pre gnancy. Mild subchorionic hemorrhage is seen. Close clinical follow-up with serial beta hCG measure ments are recommended, as clinically appropriate. There is a 9 day discrepancy between the estimated gestational age based upon these images and the estimated gestational age based upon the given date of the last menstrual period. Please correlate with precise clinical dating. Note: Concordant prelim inary findings given by the purification director upon the completion of the examination to Dr. Barrios at 5:40 PM on 06/16/2020. Reviewed by: Tony Bentley MD on 06/16/2020 5:07 PM SMITHA Approved by: Tony Bentley MD on 06/16/2020 5:07 PM SMITHA Station ID: [id number]
[2020-06-16] MEDS ORDERED: ONDANSETRON ODT 4 MG Prepack 2 TL STA (18:41)
[2020-06-16 18:58] VITALS: BP 140/82
== END 2020-06-16 18:56 | disposition home or self-care (01) ==
LOC: ED 16:10
DX: O99.89 Other specified diseases and conditions complicating pregnancy, childbirth and the puerperium (principal); R10.2 Pelvic and perineal pain; R11.2 Nausea with vomiting, unspecified; R19.7 Diarrhea, unspecified; Z3A.01 Less than 8 weeks gestation of pregnancy
CPT/HCPCS: 36415; 76801; 76817; 80053; 81003; 83690; 84702; 85025; 96361; 96374; 96375; 99284; J2765; 81001; 87086

== ENCOUNTER 2020-07-29 10:36 | Outpatient (CLI) | payer MEDICAID | END 2020-07-29 10:37 | disposition home or self-care (01) | LOC: LAB 10:36 | PROVIDERS: ATTEND Obstetrics & Gynecology | DX: Z32.01 Encounter for pregnancy test, result positive (principal) | CPT/HCPCS: 36415; 84702 ==

== ENCOUNTER 2020-07-29 13:18 | Outpatient (CLI) | payer MEDICAID ==
--- NOTE | 2020-07-29 16:39 | Ultrasound Report ---
PROCEDURE: OB First Trimester INDICATIONS: PREGANCY TEST + OUTSIDE/PRIOR DATING DATA: Last menstrual period (LMP): Not available. LMP-based estimated date of delivery (ERNST): Not available. First dating scan (date and location): Intrauterine gestation is not yet established. Estimated date of delivery (ERNST) from first dating scan: Not applicable. TECHNIQUE: Real-time scanning was performed of the fetus and maternal pelvic organs, with image documentation. COMPARISON: 06/16/2020 FINDINGS: Currently an intrauterine gestation is not seen. Measurement variability in dating: +/- 4 weeks by LMP, +/- 7 days by mean sac diameter (use before 6 weeks gestation if crown-rump length not able to be measured), +/- 5 days by crown-rump length (6-12 weeks gestation). Maternal organs: Ovaries show no evidence of definite ectopic , but there is a complex righ t ovarian cyst measuring up to 3.5 x 1.3 x 2.6 cm containing low level internal echoes. Limited image s through the kidneys demonstrate no hydronephrosis. IMPRESSION: An intrauterine gestation is not seen. Sonographic evidence of ectopic at the adnexal regio ns of each hemipelvis is not found. Presumed hemorrhagic right ovarian cyst measuring up to 1.3 x 2.6 x 3.5 cm. Reviewed by: Zachary Clemons MD on 07/29/2020 4:38 PM PDT Approved by: Zachary Clemons MD on 07/29/2020 4:38 PM PDT Station ID: [id number]
--- NOTE | 2020-07-29 16:43 | Ultrasound Report ---
PROCEDURE: OB Transvaginal INDICATIONS: POSITIVE PREG TEST- DATING FINDINGS: Please refer to OB first trimester ultrasound for the combined report for both transabdominal and tra nsvaginal scanning from today. IMPRESSION: Please refer to OB first trimester ultrasound report, as noted above. Reviewed by: Zachary Clemons MD on 07/29/2020 4:42 PM PDT Approved by: Zachary Clemons MD on 07/29/2020 4:42 PM PDT Station ID: [id number]
== END 2020-07-29 13:19 | disposition home or self-care (01) ==
LOC: DI 13:18
PROVIDERS: ATTEND Advanced Practice Midwife
DX: Z32.01 Encounter for pregnancy test, result positive (principal)
CPT/HCPCS: 76801; 76817

== ENCOUNTER 2020-08-06 13:39 | Outpatient (CLI) | payer MEDICAID | END 2020-08-06 13:40 | disposition home or self-care (01) | LOC: LAB 13:39 | PROVIDERS: ATTEND Obstetrics & Gynecology | DX: Z53.9 Procedure and treatment not carried out, unspecified reason (principal) | CPT/HCPCS: 36415; 84702 ==

== ENCOUNTER 2021-06-25 16:53 | Emergency (ER) | payer OTHER, MEDICAID ==
[2021-06-25 17:05] VITALS: BP 131/75
--- NOTE | 2021-06-25 17:37 | ED Physician Documentation ---
History of Present Illness - Stated complaint Stated Complaint: ANXIETY - Chief complaint Chief Complaint: General - Additonal information Additional information: 31-year-old female presents the emergency department requesting help managing h er anxiety. She reports that for the last few weeks she finds herself spacing out and then getting acutely anxious. She admits that she often over thinks things. She is newly and her is deployed. Her father also recently and she started a brand-new job. She thinks that these may be the reasons why she is having a difficult time with anxiety. She has no thoughts of self-harm or harm to others. She has never been psychiatrically hospitalized. At some point in the past she was taking and as needed medication that she thinks may be hydroxyzine but she is unsure. She did find that that medication was at times helpful. She is finding it difficult to navigate [employer] and establishing with a new primary provider. Denies excessive alcohol use. No tobacco or vaping. Occasional cannabis use. Review of Systems Constitutional: reports: Reviewed and negative Nose: reports: Reviewed and negative Throat: reports: Reviewed and negative Cardiac: reports: Reviewed and negative Respiratory: reports: Reviewed and negative GI: reports: Reviewed and negative : reports: Reviewed and negative Skin: reports: Reviewed and negative Musculoskeletal: reports: Reviewed and negative Neurologic: reports: Reviewed and negative Psychiatric: reports: Anxiety. denies: Depressed, Suicidal, Homicidal Endocrine: reports: Reviewed and negative PD PAST MEDICAL HISTORY - Past Medical History Cardiovascular: Murmur, Valve disorder Respiratory: None Endocrine/Autoimmune: None GI: None : None HEENT: None Psych: Depression Musculoskeletal: None Derm: None - Past Surgical History Past Surgical History: Yes Cardiovascular: Other - Present Medications Home Medications: Ambulatory Orders Medication Instructions Recorded Confirmed hydrOXYzine HCL [Hydroxyzine HCl] 25 mg PO TID PRN #30 tablet 06/25/21 - Allergies Allergies/Adverse Reactions: Allergies Allergy/AdvReac Type Severity Reaction Status Date / Time azithromycin AdvReac Cramps Verified 06/25/21 17:05 - Social History Does the pt smoke?: No Smoking Status: Never smoker Does the pt drink ETOH?: No Does the pt have substance abuse?: No - Immunizations Immunizations are current?: Yes PD ED PE NORMAL - General General: Alert and oriented X 3, No acute distress - HEENT HEENT: PERRL - Neck Neck: Supple, no meningeal sign - Cardiac Cardiac: RRR, No murmur - Respiratory Respiratory: Clear bilaterally - Abdomen Abdomen: Normal bowel sounds, Soft, Non tender, Non distended - Derm Derm: Warm and dry - Extremities Extremities: No deformity - Neuro Neuro: Alert and oriented X 3 - Psych Psych: Normal mood, Normal affect, Other (Very focused intense communicator. Good eye contact. Denies self-harm or harm to others. No cutting behaviors.) Results - Vitals Vitals: Vital Signs - 24 hr 06/25/21 17:00 Temperature 37 C Heart Rate 66 Respiratory 16 Rate Blood Pressure 131/75 H O2 Saturation 100 Oxygen O2 Source Room air PD MEDICAL DECISION MAKING - ED course Complexity details: d/w patient ED course: 31-year-old female presents emergency department requesting assistance managing her anxiety. There are multiple new stressors at home that include marriage, deployment of her , new job as well as recent of her father. She has at times in the past taken a medication for anxiety which she believes may be hydroxyzine but she is unsure. Patient presents very well-appearing well-groomed. Easily contracts for safety and does not express desire to harm herself. She is somewhat anxious and certainly has a lot of reasons to have situational anxiety given her new stressors. She is finding difficulty managing establishing a new doctor with [facility]. At this time she is safe for discharge home. I will write a prescription for hydroxyzine. I have also encouraged her to follow-up with talk therapy which may be helpful at finding a root cause for some of her anxiety behaviors. She does seem to have healthy behaviors at home which include yoga and meditation. Emergent return precautions were discussed for worsening symptoms or thoughts of self-harm. Departure - Departure Disposition: Home, Self Care Clinical Impression: Situational anxiety Condition: Stable Record reviewed to determine appropriate education?: Yes Instructions: ED Anxiety Reaction Ch, ED Stress React Prescriptions: hydrOXYzine HCL [Hydroxyzine HCl] 25 mg PO TID PRN #30 tablet PRN Reason: Anxiety Comments: She has been you were seen in the emergency department today for anxiety. It sounds like you are having a lot of stress reactions due to your being deployed, being newly , the of your father, starting a new job and essentially acting as a single mom right now. Most anxiety will do well in the long-term with a combination of talk therapy, meditation, as well as sometimes as needed or longer acting medication. I would like to start you on hydroxyzine. This is a medicine that you can take 2 or 3 times a day only as needed for anxiety. In some cases it can cause drowsiness so I recommend that you take the first few doses when you are at home and can remain at home for a few hours. Please follow-up with [facility] to request evaluation by primary care doctor. If over the next few weeks or months your symptoms are not improving you may benefit from a longer acting daily medication to help manage your symptoms. I also recommend that you schedule an appointment with a therapist to talk about some causes or reasons behind your anxiety. If at any point you ever feel unsafe, have thoughts of harm to yourself or others then call 911 or return immediately to the ER. I do wish you luck in your journey.
== END 2021-06-25 17:47 | disposition home or self-care (01) ==
LOC: ED 16:53
DX: F41.8 Other specified anxiety disorders (principal)
CPT/HCPCS: 99282; 99283